=== PATIENT | male | born 1945 | race African-American/Black ===

== ENCOUNTER 2019-01-24 10:22 | Inpatient (IN) | payer OTHER ==
[~2019-01-24] VITALS: Ht 175.3 cm; Wt 54.0 kg
[2019-01-24] VITALS (17 sets, daily range): BP systolic 111–140; BP diastolic 55–85
[2019-01-24] MEDS ORDERED: ATOR20TA65 PO (10:27)
[2019-01-24] MEDS ORDERED: SODIUM CHLORIDE 0.9% 1000ML BAG (SEPSIS BOLUS) IV ONE (11:00)
[2019-01-24 11:16] LABS: HEMATOCRIT. 40.2 % (42.0-52.0); HEMOGLOBIN. 13.1 g/dL (14.0-18.0); MEAN CORPUSCULAR HEMOGLOBIN 31.3 pg (28.0-32.0); MEAN CORPUSCULAR VOLUME 96.1 fL (80.0-94.0); MEAN PLATELET VOLUME 7.5 fl (7.4-10.4); PLATELET 66 x1000/uL (130-400); RED BLOOD CELL COUNT 4.18 mill/uL (4.7-6.1); RED CELL DISTRIBUTION WIDTH 15.8 % (11.6-14.6)
[2019-01-24 11:25] LABS: CHLORIDE 100 mEq/L (98-107)
[2019-01-24 11:46] LABS: INR 1.1; PROTHROMBIN TIME 11.7 sec (9.6-11.0)
[2019-01-24 12:15] LABS: PLATELET ESTIMATE DECREASED
[2019-01-24] MEDS ORDERED: IOHEXOL-350 100 ML BOTTLE ONE ×2 (12:19→15:42)
[2019-01-24 13:21] LABS: CLARITY URINE CLEAR (CLEAR); COLOR URINE YELLOW (YELLOW); KETONES URINE TRACE (NEGATIVE); LEUKOCYTE ESTERASE URINE NEGATIVE (NEGATIVE); NITRITE URINE NEGATIVE (NEGATIVE); OCCULT BLOOD URINE 2+ (NEGATIVE); PH URINE 5.5 (4.5-8.0); PROTEIN URINE 1+ (NEGATIVE); SPECIFIC GRAVITY URINE 1.064 (1.005-1.030); UROBILINOGEN URINE 0.2 E.U./dL (0.2-1.0)
[2019-01-24] MEDS ORDERED: DEXT 5%/LACTATED RINGERS 1,000 ML IV SCH (13:51)
[2019-01-24] MEDS ORDERED: DOCUSATE SODIUM 100MG CAPSULE PO PRN (14:00)
[2019-01-24] MEDS ORDERED: ONDANSETRON HCL 4MG/2ML INJ IV PRN (14:00)
[2019-01-24] MEDS: PANTOPRAZOLE SODIUM 40 MG/VIAL IV SCH (14:00)
[2019-01-24] MEDS ORDERED: IPRATROPIUM/ALBUTEROL 0.5-3(2.5)MG/3ML NEB NEB PRN (14:00)
[2019-01-24] MEDS ORDERED: ACETAMINOPHEN 650MG SUPP PR PRN (14:00)
[2019-01-24 16:00] LABS: *AMPHETAMINES SCREEN URINE NEGATIVE (NEGATIVE); *BARBITURATES SCREEN URINE NEGATIVE (NEGATIVE)
[2019-01-24 16:01] LABS: *BENZODIAZEPINES SCREEN URINE NEGATIVE (NEGATIVE); *COCAINE SCREEN URINE NEGATIVE (NEGATIVE); METHADONE URINE SCREEN NEGATIVE (NEGATIVE); OPIATES URINE SCREEN PRESUMTIVE POSITIVE (NEGATIVE); PHENCYCLIDINE URINE SCREEN NEGATIVE (NEGATIVE)
[2019-01-24 16:02] LABS: CANNABINOID URINE SCREEN PRESUMTIVE POSITIVE (NEGATIVE)
[2019-01-24 16:08] LABS: TOTAL IRON BINDING CAPACITY 265 ug/dL (250-450)
[2019-01-24] MEDS ORDERED: NITROPRUSSIDE 50 MG in DEXT 5% WATER 248 ML IV PRN (16:30)
[2019-01-24] MEDS ORDERED: MORPHINE SULFATE 2 MG/ML CPJ (NOT FOR IM USE) IV PRN (16:30)
[2019-01-24 16:32] LABS: FOLIC ACID (FOLATE) SERUM >20 ng/mL ng/mL (>5.38)
[2019-01-24 16:44] LABS: VITAMIN B12 SERUM >2000 pg/mL pg/mL (211-911)
[2019-01-24] MEDS: DEXT 5%/LACTATED RINGERS 1,000 ML IV SCH (18:00)
[2019-01-24] MEDS: LEVETIRACETAM 500MG PREMIX 100 ML IV SCH (19:23)
[2019-01-25] VITALS (45 sets, daily range): BP systolic 105–153; BP diastolic 46–88
[2019-01-25] MEDS: LEVETIRACETAM 500MG PREMIX 100 ML IV SCH ×2 (06:08→20:29)
[2019-01-25] MEDS: ACETAMINOPHEN 325MG TABLET PO PRN ×2 (06:23→14:47)
[2019-01-25] MEDS: PANTOPRAZOLE SODIUM 40 MG/VIAL IV SCH (09:41)
[2019-01-25] MEDS: DEXT 5%/LACTATED RINGERS 1,000 ML IV SCH (09:42)
[2019-01-25] MEDS: AZITHROMYCIN 500 MG in DEXT 5% WATER 250 ML IV SCH (13:59)
[2019-01-25] MEDS: IPRATROPIUM/ALBUTEROL 0.5-3(2.5)MG/3ML NEB HHN SCH ×2 (15:08→21:10)
[2019-01-26] VITALS (43 sets, daily range): BP systolic 96–137; BP diastolic 48–80
[2019-01-26] MEDS: IPRATROPIUM/ALBUTEROL 0.5-3(2.5)MG/3ML NEB HHN SCH ×5 (02:17→20:52)
[2019-01-26] MEDS: DEXT 5%/LACTATED RINGERS 1,000 ML IV SCH (08:00)
[2019-01-26] MEDS: LEVETIRACETAM 500MG PREMIX 100 ML IV SCH ×2 (10:09→20:39)
[2019-01-26] MEDS: PANTOPRAZOLE SODIUM 40 MG/VIAL IV SCH (10:10)
[2019-01-26] MEDS: ACETAMINOPHEN 325MG TABLET PO PRN ×2 (10:52→20:49)
[2019-01-26 12:49] LABS: HEMATOCRIT. 32.3 % (42.0-52.0); HEMOGLOBIN. 10.5 g/dL (14.0-18.0); MEAN CORPUSCULAR HEMOGLOBIN 30.8 pg (28.0-32.0); MEAN CORPUSCULAR VOLUME 94.7 fL (80.0-94.0); MEAN PLATELET VOLUME 7.8 fl (7.4-10.4); PLATELET 65 x1000/uL (130-400); RED BLOOD CELL COUNT 3.41 mill/uL (4.7-6.1); RED CELL DISTRIBUTION WIDTH 15.2 % (11.6-14.6)
[2019-01-26 12:57] LABS: CHLORIDE 99 mEq/L (98-107)
[2019-01-26 13:39] LABS: PLATELET ESTIMATE DECREASED
[2019-01-26] MEDS: AZITHROMYCIN 500 MG in DEXT 5% WATER 250 ML IV SCH (13:46)
[2019-01-27] VITALS (23 sets, daily range): BP systolic 98–144; BP diastolic 54–86
[2019-01-27] MEDS: IPRATROPIUM/ALBUTEROL 0.5-3(2.5)MG/3ML NEB HHN SCH ×2 (00:30→20:10)
[2019-01-27] MEDS: DEXT 5%/LACTATED RINGERS 1,000 ML IV SCH (05:08)
[2019-01-27 05:53] LABS: HEMATOCRIT. 33.4 % (42.0-52.0); HEMOGLOBIN. 10.8 g/dL (14.0-18.0); MEAN CORPUSCULAR HEMOGLOBIN 30.9 pg (28.0-32.0); MEAN PLATELET VOLUME 8.6 fl (7.4-10.4); PLATELET 71 x1000/uL (130-400); RED BLOOD CELL COUNT 3.51 mill/uL (4.7-6.1); RED CELL DISTRIBUTION WIDTH 15.4 % (11.6-14.6)
[2019-01-27 05:56] LABS: CHLORIDE 103 mEq/L (98-107)
[2019-01-27] MEDS: LEVETIRACETAM 500MG PREMIX 100 ML IV SCH ×2 (09:00→22:53)
[2019-01-27] MEDS: PANTOPRAZOLE SODIUM 40 MG/VIAL IV SCH (09:01)
[2019-01-27 13:21] LABS: PLATELET ESTIMATE DECREASED
[2019-01-27] MEDS: AZITHROMYCIN 500 MG in DEXT 5% WATER 250 ML IV SCH (14:49)
[2019-01-28] VITALS: BP 110/74
[2019-01-28] MEDS: IPRATROPIUM/ALBUTEROL 0.5-3(2.5)MG/3ML NEB HHN SCH (02:30)
[2019-01-28 03:29] LABS: HEMATOCRIT. 33.1 % (42.0-52.0); HEMOGLOBIN. 10.9 g/dL (14.0-18.0); MEAN CORPUSCULAR HEMOGLOBIN 31.1 pg (28.0-32.0); MEAN CORPUSCULAR VOLUME 94.3 fL (80.0-94.0); MEAN PLATELET VOLUME 7.8 fl (7.4-10.4); PLATELET 79 x1000/uL (130-400); RED CELL DISTRIBUTION WIDTH 15.1 % (11.6-14.6)
[2019-01-28 03:31] LABS: CHLORIDE 102 mEq/L (98-107)
[2019-01-28 04:00] VITALS: BP 123/70
[2019-01-28] MEDS: DEXT 5%/LACTATED RINGERS 1,000 ML IV SCH (06:32)
[2019-01-28 07:29] LABS: ATYPICAL LYMPHOCYTES 5; PLATELET ESTIMATE DECREASED
[2019-01-28 08:00] VITALS: BP 125/70
[2019-01-28] MEDS: PANTOPRAZOLE SODIUM 40 MG/VIAL IV SCH (08:57)
[2019-01-28] MEDS ORDERED: LEVETIRACETAM 500 MG in SODIUM CHLORIDE 0.9% 100 ML IV SCH (09:30)
[2019-01-28] MEDS ORDERED: LEVETIRACETAM 500MG in SODIUM CHLORIDE 0.9% 100ML IV SCH (10:00)
[2019-01-28 12:00] VITALS: BP 119/74
[2019-01-28] MEDS ORDERED: ACETAMINOPHEN 325MG TABLET PO PRN (12:00)
[2019-01-28] MEDS: AZITHROMYCIN 500 MG in DEXT 5% WATER 250 ML IV SCH (14:45)
[2019-01-28 16:00] VITALS: BP 130/85
[2019-01-28 16:23] VITALS: BP 130/85
== END 2019-01-28 16:55 | disposition short-term general hospital (02) | DRG 86 ==
LOC: ER 10:22 → ENRESERV 15:29 → MICUSO 16:08 → 6EST 01-27 09:25
PROVIDERS: ADMIT Internal Medicine; ATTEND Internal Medicine
DX: S06.6X0A Traumatic subarachnoid hemorrhage without loss of consciousness, initial encounter (principal); C91.10 Chronic lymphocytic leukemia of B-cell type not having achieved remission; S05.11XA Contusion of eyeball and orbital tissues, right eye, initial encounter; F12.10 Cannabis abuse, uncomplicated; D69.59 Other secondary thrombocytopenia; D64.9 Anemia, unspecified; X58.XXXA Exposure to other specified factors, initial encounter; F11.10 Opioid abuse, uncomplicated; E78.00 Pure hypercholesterolemia, unspecified; I10 Essential (primary) hypertension; Z88.0 Allergy status to penicillin; Z79.899 Other long term (current) drug therapy; Y93.89 Activity, other specified; Y92.89 Other specified places as the place of occurrence of the external cause; Y99.8 Other external cause status
CPT/HCPCS: 36415; 70496; 71045; 80048; 80061; 80305; 81003; 82607; 82746; 83036; 83540; 83550; 83605; 84145; 84484; 93005; 93970; 96360; 96361; 97162; 99291; C9113; J0456; J1953; J7030; J7050; J7060; J7121; J7620; Q9967